=== PATIENT | male | born 2000 | race American Indian/Alaskan Native ===

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

== ENCOUNTER 2019-01-29 09:09 | Emergency (ER) | payer SELFPAY ==
[2019-01-29 09:55] LABS: Bacteria,Urine 2+ /HPF (Negative); Bilirubin,Urine NEG (Negative); Blood,Urine LG (Negative); Color,Urine Red (Yellow); RBC,Urine > 182.0 /HPF (0.0-6.0); Urobilinogen,Urine < 2.0 mg/dL (<2.0); WBC,Urine > 182.0 /HPF (0.0-6.0)
--- NOTE | 2019-01-29 10:58 | Emergency Department Report ---
ED Male HPI - General Chief complaint: Urogenital-Male Stated complaint: POSS BLADDER INFECTION Time Seen by Provider: 01/29/19 10:15 Source: patient, family Mode of arrival: Ambulatory Limitations: No Limitations - History of Present Illness Initial comments: This is a 18-year-old male patient here for that he is having urinary burning in and blood in his urine with abdominal pain to his lower abdomen. He said this has been going on for 1 week. Denies any fever but reports chills. Denies any back pain. Denies any nausea or vomiting. He has had previous urinary tract infection in the past. Abdominal pain is located to left lower quadrants that feels sharp and crampy in and also constant. No medication taken. Similar pain with urinary tract infection in the past. Patient denies any penile discharge and denies concern for STD. He says that he holds his urine a lot and he does not drink a lot of water. MD Complaint: other (abdominal pain and blood in urine) Onset/Timin -: week(s) Radiation: none Severity scale (0 -10): 4 Quality: other (crampy) Consistency: constant blood in urine. denies: discharge, swelling, mass, rash, urinary retention, dysuria, fever, nausea/vomiting, incontinence - Related Data Sexually active: Yes Previous Rx's Medication Instructions Recorded Last Taken Type Amoxicillin 500 mg PO BID #20 capsule 08/20/16 Unknown Rx Tobramycin 0.3% [Tobrex] 1 drop OS QID 7 Days bottle 08/20/16 Unknown Rx Ibuprofen [Motrin 600 MG tab] 600 mg PO Q8H PRN #15 tablet 06/25/17 Unknown Rx Azithromycin [Zithromax TAB] 1,000 mg PO ONCE #2 tablet 11/10/18 Unknown Rx Phenazopyridine [Pyridium] 200 mg PO TID #10 tab 11/10/18 Unknown Rx Sulfamethoxazole/Trimethoprim 1 each PO BID #20 tablet 11/10/18 Unknown Rx [Bactrim DS TAB] Sulfamethoxazole/Trimethoprim 1 each PO BID 10 Days #20 tablet 01/29/19 Unknown Rx [Bactrim DS TAB] Allergies Allergy/AdvReac Type Severity Reaction Status Date / Time No Known Allergies Allergy Verified 01/29/19 09:10 ED Review of Systems ROS: Stated complaint: POSS BLADDER INFECTION Other details as noted in HPI ENT: denies: throat pain Respiratory: denies: cough, shortness of breath, wheezing Cardiovascular: denies: chest pain, palpitations, edema, syncope Gastrointestinal: abdominal pain. denies: nausea, vomiting, constipation, hematemesis, melena, hematochezia Genitourinary: hematuria. denies: dysuria, frequency, discharge, testicular pain, testicular mass Musculoskeletal: denies: back pain, joint swelling, arthralgia, myalgia Skin: denies: rash Neurological: denies: headache ED Past Medical Hx - Past Medical History Previous Medical History?: No - Surgical History Past Surgical History?: No - Family History Family history: hypertension - Social History Smoking Status: Never Smoker Substance Use Type: Marijuana - Medications Home Medications: Home Medications Medication Instructions Recorded Confirmed Last Taken Type Amoxicillin 500 mg PO BID #20 capsule 08/20/16 Unknown Rx Tobramycin 0.3% [Tobrex] 1 drop OS QID 7 Days bottle 08/20/16 Unknown Rx Ibuprofen [Motrin 600 MG tab] 600 mg PO Q8H PRN #15 tablet 06/25/17 Unknown Rx Azithromycin [Zithromax TAB] 1,000 mg PO ONCE #2 tablet 11/10/18 Unknown Rx Phenazopyridine [Pyridium] 200 mg PO TID #10 tab 11/10/18 Unknown Rx Sulfamethoxazole/Trimethoprim 1 each PO BID #20 tablet 11/10/18 Unknown Rx [Bactrim DS TAB] Sulfamethoxazole/Trimethoprim 1 each PO BID 10 Days #20 tablet 01/29/19 Unknown Rx [Bactrim DS TAB] ED Physical Exam - General Limitations: No Limitations General appearance: alert, in no apparent distress - Head Head exam: Present: atraumatic, normocephalic - Eye Eye exam: Present: normal appearance, PERRL, EOMI - ENT ENT exam: Present: normal exam, normal orophraynx, mucous membranes moist - Neck Neck exam: Present: normal inspection, full ROM. Absent: tenderness - Respiratory Respiratory exam: Present: normal lung sounds bilaterally. Absent: respiratory distress, chest wall tenderness - Cardiovascular Cardiovascular Exam: Present: normal rhythm, tachycardia, normal heart sounds - GI/Abdominal GI/Abdominal exam: Present: soft, tenderness (llq), normal bowel sounds. Absent: guarding, rebound, rigid, organomegaly - Extremities Exam Extremities exam: Present: normal inspection, full ROM, normal capillary refill, other (no cce. +2 pulses). Absent: tenderness, pedal edema, joint swelling, calf tenderness - Back Exam Back exam: Present: normal inspection, full ROM. Absent: tenderness, CVA tend erness (R), CVA tenderness (L), muscle spasm, paraspinal tenderness, vertebral tenderness, rash noted - Neurological Exam Neurological exam: Present: alert, oriented X3, normal gait - Psychiatric Psychiatric exam: Present: normal affect, normal mood - Skin Skin exam: Present: warm, dry, intact, normal color. Absent: rash ED Course Vital Signs 01/29/19 01/29/19 09:18 14:54 Temperature 98.0 F Pulse Rate 106 H 72 Respiratory 18 18 Rate Blood Pressure 109/74 Blood Pressure 110/62 [Right] O2 Sat by Pulse 100 99 Oximetry - Reevaluation(s) Reevaluation #1: 01/29/19 14:28 Pt with urinary tract infection . ED stay without complication ED Medical Decision Making - Lab Data Result diagrams: 01/29/19 12:40 01/29/19 12:40 Lab Results 01/29/19 01/29/19 01/29/19 Range/Units 09:39 12:40 12:40 WBC 6.1 (4.5-11.0) K/mm3 RBC 5.06 H (3.65-5.03) M/mm3 Hgb 15.4 H (11.8-15.2) gm/dl Hct 46.0 H (35.5-45.6) % MCV 91 (84-94) fl MCH 30 (28-32) pg MCHC 33 (32-34) % RDW 13.9 (13.2-15.2) % Plt Count 303 (140-440) K/mm3 Lymph % (Auto) 24.9 (13.4-35.0) % Person % (Auto) 12.3 H (0.0-7.3) % Eos % (Auto) 2.1 (0.0-4.3) % Baso % (Auto) 0.9 (0.0-1.8) % Lymph # 1.5 (1.2-5.4) K/mm3 Person # 0.8 (0.0-0.8) K/mm3 Eos # 0.1 (0.0-0.4) K/mm3 Baso # 0.1 (0.0-0.1) K/mm3 Seg Neutrophils % 59.8 (40.0-70.0) % Seg Neutrophils # 3.7 (1.8-7.7) K/mm3 Sodium 140 (137-145) mmol/L Potassium 4.9 (3.6-5.0) mmol/L Chloride 104.1 (98-107) mmol/L Carbon Dioxide 24 (22-30) mmol/L Anion Gap 17 mmol/L BUN 17 (9-20) mg/dL Creatinine 0.8 (0.8-1.5) mg/dL Estimated GFR > 60 ml/min BUN/Creatinine Ratio 21 % Glucose 87 (75-100) mg/dL Calcium 9.7 (8.4-10.2) mg/dL Total Bilirubin 0.40 (0.1-1.2) mg/dL Direct Bilirubin < 0.2 (0-0.2) mg/dL Indirect Bilirubin 0.2 mg/dL AST 20 (5-40) units/L ALT 10 (7-56) units/L Alkaline Phosphatase 80 (35-129) units/L Total Protein 7.9 (6.3-8.2) g/dL Albumin 4.4 (3.9-5) g/dL Albumin/Globulin Ratio 1.3 % Lipase 14 (13-60) units/L Urine Color Red (Yellow) Urine Turbidity Cloudy (Clear) Urine pH 7.0 (5.0-7.0) Ur Specific [place] 1.023 (1.003-1.030) Urine Protein 100 mg/dl (Negative) mg/dL Urine Glucose (UA) 50 (Negative) mg/dL Urine Ketones Neg (Negative) mg/dL Urine Blood Lg (Negative) Urine Nitrite Neg (Negative) Urine Bilirubin Neg (Negative) Urine Urobilinogen < 2.0 (<2.0) mg/dL Ur Leukocyte Esterase Mod (Negative) Urine WBC (Auto) > 182.0 H (0.0-6.0) /HPF Urine RBC (Auto) > 182.0 (0.0-6.0) /HPF Urine Bacteria (Auto) 2+ (Negative) /HPF Culture pending - Radiology Data Radiology results: report reviewed Sinus CT scan of the abdomen and pelvis without contrast and no acute findings. This was dictated by radiologist and report reviewed by myself Findings [facility] [address] [place] [address] Cat Scan Report Signed Patient: MARGARITA HUNT MR #: [id number] : 2000 Acct:[id number] Age/Sex: 18 / M ADM Date: 01/29/19 Loc: ED Attending Dr: Ordering Physician: BIBI PEACE Date of Service: 01/29/19 Procedure(s): CT abdomen pelvis wo con Accession Number(s): [id number] cc: BIBI PEACE CT ABDOMEN AND PELVIS WITHOUT CONTRAST INDICATION / CLINICAL INFORMATION: abdominalpain with hematuria, UTI. TECHNIQUE: Axial CT images were obtained through the abdomen and pelvis without IV contrast. All CT scans at this location are performed using CT dose reduction for ALARA by means of automated exposure control. COMPARISON: None available. FINDINGS: Lack of intra-abdominal fat limits the diagnostic accuracy of the examination LOWER CHEST: No significant abnormality. LIVER: No significant abnormality. GALLBLADDER: No significant abnormality. BILE DUCTS: No significant abnormality. PANCREAS: No significant abnormality. SPLEEN: No significant abnormality. ADRENALS: No significant abnormality. RIGHT KIDNEY and URETER: No significant abnormality. LEFT KIDNEY and URETER: No significant abnormality. STOMACH and SMALL BOWEL: No significant abnormality. COLON: No significant abnormality. APPENDIX: Is not definitely identified PERITONEUM: No free fluid. No free air. No fluid collection. LYMPH NODES: No significant adenopathy. AORTA and ARTERIES: No significant abnormality. IVC and VEINS: No significant abnormality. URINARY BLADDER: No significant abnormality. REPRODUCTIVE ORGANS: No significant abnormality. ADDITIONAL FINDINGS: None. SKELETAL SYSTEM: No significant abnormality. IMPRESSION: 1. No significant abnormality. Signer Name: Aj Walker MD Signed: 01/29/2019 1:50 PM Workstation Name: [id number] Transcribed By: WG Dictated By: Aj Walker MD Electronically Authenticated By: Aj Walker MD Signed Date/Time: 01/29/19 1350 DD/ 13 - Medical Decision Making 18-year-old male here with complaint of blood in his urine and left lower quadrant abdominal pain. Urinalysis shows large amount of blood in urine and UTI. CT scan of the abdomen and pelvis without contrast shows no acute findings. I discussed urinalysis results and CT scan result patient and he voic ed understanding. Patient would hemorrhagic UTI and abdominal pain. Discharge home with prescription for Bactrim DS and follow up with primary care. He voiced understanding and discharged home in stable condition. Vital signs stable afebrile. - Differential Diagnosis renal calculus, pyelonephritis, hemorrhagic UTI Critical care attestation.: If time is entered above; I have spent that time in minutes in the direct care of this critically ill patient, excluding procedure time. ED Disposition Clinical Impression: Acute cystitis with hematuria Abdominal pain Qualifiers: Abdominal location: lower abdomen, unspecified Qualified Code(s): R10.30 - Lower abdominal pain, unspecified Disposition: - TO HOME OR SELFCARE Is pt being admited?: No Does the pt Need Aspirin: No Condition: Stable Instructions: Urinary Tract Infection in Men (ED), Acute Abdominal Pain (ED) Additional Instructions: please follow up with primary care physician at [facility] take medication as prescribed Increase your fluid intake If your condition worsens, please return to ED Prescriptions: Sulfamethoxazole/Trimethoprim [Bactrim DS TAB] 1 each PO BID 10 Days #20 tablet Referrals: PRIMARY CAREMD [Primary Care Provider] - 02/08/19 [facility] [Outside] - 02/01/19 Forms: Work/School Release Form(ED)
[2019-01-29 13:18] LABS: Basophils # (Auto) 0.1 K/mm3 (0.0-0.1); Basophils % (Auto) 0.9 % (0.0-1.8); Eosinophils # (Auto) 0.1 K/mm3 (0.0-0.4); Eosinophils % (Auto) 2.1 % (0.0-4.3); Hemoglobin 15.4 gm/dl (11.8-15.2); Lymphocytes # (Auto) 1.5 K/mm3 (1.2-5.4); Lymphocytes % (Auto) 24.9 % (13.4-35.0); Mean Corpuscular HGB Conc 33 % (32-34); Mean Corpuscular Volume 91 fl (84-94); Monocytes # (Auto) 0.8 K/mm3 (0.0-0.8); Monocytes % (Auto) 12.3 % (0.0-7.3); Platelet Count 303 K/mm3 (140-440); Red Blood Count 5.06 M/mm3 (3.65-5.03); Red Cell Distribution Width 13.9 % (13.2-15.2)
[2019-01-29 13:46] LABS: Alanine Aminotransferase 10 units/L (7-56); Albumin 4.4 g/dL (3.9-5); BUN/Creatinine Ratio 21; Blood Urea Nitrogen 17 mg/dL (9-20); Calcium 9.7 mg/dL (8.4-10.2); Hemolysis Index 41
[2019-01-29 13:48] LABS: Bilirubin,Direct < 0.2 mg/dL (0-0.2)
--- NOTE | 2019-01-29 13:54 | Cat Scan Report ---
CT ABDOMEN AND PELVIS WITHOUT CONTRAST INDICATION / CLINICAL INFORMATION: abdominalpain with hematuria, UTI. TECHNIQUE: Axial CT images were obtained through the abdomen and pelvis without IV contrast. All CT scans at [facility] location are performed using CT dose reduction for ALARA by means of automated exposure control. COMPARISON: None available. FINDINGS: Lack of intra-abdominal fat limits the diagnostic accuracy of the examination LOWER CHEST: No significant abnormality. LIVER: No significant abnormality. GALLBLADDER: No significant abnormality. BILE DUCTS: No significant abnormality. PANCREAS: No significant abnormality. SPLEEN: No significant abnormality. ADRENALS: No significant abnormality. RIGHT KIDNEY and URETER: No significant abnormality. LEFT KIDNEY and URETER: No significant abnormality. STOMACH and SMALL BOWEL: No significant abnormality. COLON: No significant abnormality. APPENDIX: Is not definitely identified PERITONEUM: No free fluid. No free air. No fluid collection. LYMPH NODES: No significant adenopathy. AORTA and ARTERIES: No significant abnormality. IVC and VEINS: No significant abnormality. URINARY BLADDER: No significant abnormality. REPRODUCTIVE ORGANS: No significant abnormality. ADDITIONAL FINDINGS: None. SKELETAL SYSTEM: No significant abnormality. IMPRESSION: 1. No significant abnormality. Signer Name: Aj Walker MD Signed: 01/29/2019 1:50 PM Workstation Name: [id number]
[2019-01-29 14:55] VITALS: BP 110/62
== END 2019-01-29 14:54 | disposition home or self-care (01) ==
LOC: ED 09:09
DX: N30.01 Acute cystitis with hematuria (principal); F12.10 Cannabis abuse, uncomplicated; Z79.1 Long term (current) use of non-steroidal anti-inflammatories (NSAID); Z79.2 Long term (current) use of antibiotics; Z79.899 Other long term (current) drug therapy
CPT/HCPCS: 36415; 74176; 80048; 80076; 81001; 83690; 85025; 87086

== ENCOUNTER 2020-04-20 14:01 | Emergency (ER) | payer SELFPAY ==
--- NOTE | 2020-04-20 14:47 | Emergency Department Report ---
Blank Doc - Documentation Documentation: 20-year-old male that presents with lower abdominal pain with nausea vomiting. 1- This initial assessment/diagnostic orders/clinical plan/ treatment(s) is/are subject to change based on pt's health status, clinical progression and re- assessment by fellow clinical providers in the ED. Further treatment and workup at subsequent clinical provers discretion. Patient/guardians urged not to elope from ED as their condition may be serious if not clinically assessed and managed. 2-lab 3-UA
[2020-04-20 15:14] LABS: Hematocrit 47.1 % (35.5-45.6); Hemoglobin 15.8 gm/dl (11.8-15.2); Mean Corpuscular HGB Conc 34 % (32-34); Mean Corpuscular Volume 90 fl (84-94); Platelet Count 267 K/mm3 (140-440); Red Blood Count 5.22 M/mm3 (3.65-5.03); Red Cell Distribution Width 13.4 % (13.2-15.2)
[2020-04-20 15:31] LABS: Alanine Aminotransferase 13 units/L (7-56); Albumin 4.8 g/dL (3.9-5); Blood Urea Nitrogen 10 mg/dL (9-20); Calcium 9.8 mg/dL (8.4-10.2); Hemolysis Index 25
[2020-04-20 15:53] LABS: BUN/Creatinine Ratio 17
[2020-04-20 16:27] LABS: Total Cells Counted 100
[2020-04-20 16:28] LABS: RBC Morphology Normal
[2020-04-20] MEDS ORDERED: ONDANSETRON 4 MG/2 ML INJ IV ONE (17:18)
[2020-04-20] MEDS ORDERED: SODIUM CHLORIDE 0.9% 1000 ML 1,000 ML IV ONE (17:18)
[2020-04-20] MEDS ORDERED: PANTOPRAZOLE 40 MG INJ IV ONE (17:18)
[2020-04-20] MEDS ORDERED: MORPHINE 4 MG/1 ML INJ IV ONE (17:18)
--- NOTE | 2020-04-20 18:20 | Cat Scan Report ---
CT abdomen pelvis w con INDICATION: generalized abd pain, n/v. COMPARISON: 01/29/2019 TECHNIQUE: Abdominal and pelvic CT exam performed. All CT scans at this location are performed using CT dose reduction for ALARA by means of automated exposure control. FINDINGS: CT ABDOMEN and PELVIS: Lung Bases: No significant abnormality. Liver: No significant abnormality. Biliary: No significant abnormality. Spleen: No significant abnormality. Pancreas: No significant abnormality. Adrenals: No significant abnormality. Kidneys: No significant abnormality. Lymphatics: No lymphadenopathy. Vasculature: No significant abnormality. Bowel: Postoperative changes from partial bowel resection. Appendix is partially or nonvisualized. Ho wever, no inflammatory changes in the right lower quadrant to suggest appendicitis. Pelvis: Small quantity of fluid is seen within the pelvis. Osseous Structures: No aggressive osseous lesion. Postoperative changes from prior L3-L4 posterior sp inal fusion. Additional Findings: None IMPRESSION: 1. Small quantity of free fluid is seen in the pelvis which is nonspecific. Findings could be related to an inflammatory etiology such as colitis. Correlate with clinical setting. Signer Name: Khanh Keller MD Signed: 04/20/2020 6:16 PM Workstation Name: [id number]
[2020-04-20] MEDS ORDERED: metroNIDAZOLE/NS 500 MG/100 ML 500 MG/100 ML BAG IV ONE (18:21)
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
[2020-04-20 19:08] LABS: Bilirubin,Urine NEG (Negative); Blood,Urine NEG (Negative); Color,Urine Straw (Yellow); Mucus,Urine FEW /HPF; Protein,Urine <15 mg/dL mg/dL (Negative); Urobilinogen,Urine < 2.0 mg/dL (<2.0)
[2020-04-20 21:05] VITALS: BP 150/84
== END 2020-04-20 21:03 | disposition home or self-care (01) ==
LOC: ED 14:01
DX: K52.9 Noninfective gastroenteritis and colitis, unspecified (principal); R11.2 Nausea with vomiting, unspecified; R10.84 Generalized abdominal pain; F12.90 Cannabis use, unspecified, uncomplicated; Z98.890 Other specified postprocedural states; Z79.899 Other long term (current) drug therapy
CPT/HCPCS: 36415; 74177; 80053; 81001; 83690; 85007; 85025; 96361; 96365; 96367; 96375; 99284; C9113; J1956; J2270; J2405; J7030; Q9967

== ENCOUNTER 2021-01-31 21:26 | Emergency (ER) | payer SELFPAY ==
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
[2021-01-31 22:35] VITALS: BP 130/69
== END 2021-01-31 22:28 | disposition home or self-care (01) ==
LOC: ED 21:26
DX: K40.20 Bilateral inguinal hernia, without obstruction or gangrene, not specified as recurrent (principal); F12.10 Cannabis abuse, uncomplicated; Z98.890 Other specified postprocedural states; Z79.899 Other long term (current) drug therapy
CPT/HCPCS: 99282

== ENCOUNTER 2021-04-22 18:58 | Emergency (ER) | payer SELFPAY ==
[2021-04-22 20:24] VITALS: BP 133/70
[2021-04-22 21:48] LABS: Bilirubin,Urine NEG (Negative); Blood,Urine NEG (Negative); Color,Urine Yellow (Yellow); Mucus,Urine 3+ /HPF
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
== END 2021-04-23 00:12 | disposition home or self-care (01) ==
LOC: ED 18:58
DX: R82.90 Unspecified abnormal findings in urine (principal); R11.2 Nausea with vomiting, unspecified; R10.13 Epigastric pain; F12.90 Cannabis use, unspecified, uncomplicated; Z79.899 Other long term (current) drug therapy
CPT/HCPCS: 81001; 99283